=== PATIENT | male | born 1950 | race Caucasian/White ===

== ENCOUNTER 2018-02-03 13:16 | Inpatient (IN) | payer BC ==
--- NOTE | 2018-02-03 13:31 | ED Physician Chart ---
ED Chief Complaint/HPI - Patient Information Date Seen:: 02/03/18 Time Seen:: 13:15 Chief Complaint:: Dizziness History of Present Illness:: onset x one day of dizziness and vertigo; pt denies trauma, LOC, ALOC, AMS, syncope, H/As, S/T, neck pain, C/P, cough, SOB, Abd. Pain, A/N/V/D/C, fever, chills, or urinary s/s Historian:: Patient Review:: Nurse's Note Reviewed ED Review of Systems - Review of Systems General/Constitutional: No fever, No chills, No weight loss, No weakness, No diaphoresis, No edema, No loss of appetite Skin: No skin lesions, No rash, No bruising Head: No headache, No light-headedness Eyes: No loss of vision, No pain, No diplopia ENT: No earache, No nasal drainage, No sore throat, No tinnitus Neck: No neck pain, No swelling, No thyromegaly, No stiffness, No mass noted Cardio Vascular: No chest pain, No palpitations, No PND, No orthopnea, No edema Pulmonary: No SOB, No cough, No sputum, No wheezing GI: No nausea, No vomiting, No diarrhea, No pain, No melena, No hematochezia, No constipation, No hematemesis G/U: No dysuria, No frequency, No hematuria, No nacturia Musculoskeletal: No bone or joint pain, No back pain, No muscle pain Endocrine: No polyuria, No polydipsia Psychiatric: No prior psych history, No depression, No anxiety, No suicidal ideation, No homicidal ideation, No auditory hallucination, No visual hallucination Hematopoietic: No bruising, No lymphadenopathy Allergic/Immuno: No urticaria, No angioedema Neurological: No syncope, No focal symptoms, No weakness, No paresthesia, No headache, No seizure, Dizziness, No confusion, Vertigo ED Past Medical History - Past Medical History Obtainable: Yes Past Medical History: HTN, CAD Family History: HTN Social History: Non Smoker, No Alcohol, No Drug Use, Surgical History: Pacemaker Psychiatricy History: None Medication: Reviewed Family Medical History - Family Member Mother History Unknown: Yes ED Physical Exam - Physical Examination General/Constitutional: Awake, Well-developed, well-nourished, Alert, No distress, GCS 15, Non-toxic appearing, Ambulatory Head: Atraumatic Eyes: Lids, conjuctiva normal, PERRL, EOMI Skin: Nl inspection, No rash, No skin lesions, No ecchymosis, Well hydrated, No lymphadenopathy ENMT: External ears, nose nl, TM canals nl, Nasal exam nl, Lips, teeth, gums nl , Oropharynx nl, Tonsils nl Neck: Nontender, Full ROM w/o pain, No JVD, No nuchal rigidity, No bruit, No mass, No stridor Respiratory: Nl effort/Exclusion, Clear to Auscultation, No Wheeze/Rhonchi/Rales Cardio Vascular: RRR, No murmur, gallop, rubs, NL S1 S2, Carotid/Femoral/Distal pulses equal bilaterally GI: No tenderness/rebounding/guarding, No organomegaly, No hernia, Normal BS's, Nondistended, No mass/bruits, No McBurney tenderness : No CVA tenderness Extremities: No tenderness or effusion, Full ROM, normal strength in all extremities, No edema, Normal digits & nails Neuro/Psych: Alert/oriented, DTR's symmetric, Normal sensory exam, Normal motor strength, Judgement/insight normal, Mood normal, Normal gait, No focal deficits Misc: Normal back, No paraspinal tenderness ED Labs/Radiology/EKG Results - Lab Results Comments:: Reviewed - Radiology Results Comments:: CXR: CM - EKG Interpretations EKG Time:: 13:28 Rate & Rhythm: 61; Pacemaker Rhythm Comments:: non-specific st-t changes ED Septic Shock - . Is Septic Shock (SBP<90, OR Lactate>4 mmol\L) present?: No ED Reassessment (Disposition) - Reassessment Reassessment Condition:: Improved - Diagnosis Diagnosis:: Dizziness; Vertigo; Weakness; Cardiac Arrythmias; Myocardial Ischemia; S/P Defibrillator/Pacemaker - Aftercare/Follow up Instructions Aftercare/Follow-Up Instructions:: Counseled pt regarding lab results/diagnosis & need follow up, Counseled pt & family regarding lab results/diagnosis & need follow up - Patient Disposition Discharge/Transfer:: Acute Care w/in this hosp Accepting Physician:: Dr. Mack Time Called:: 1500 Time Responded:: 15:00 Admitted to:: Telemetry Spoke to:: Dr. Mack Admitting Medical Physician:: Dr. Mack Condition at Disposition:: Stable, Improved
[2018-02-03 13:55] LABS: % BASOPHILS 0.7 % (0.0-2.0); % LYMPHOCYTES 28.4 % (20.0-50.0); % MONOCYTES 8.4 % (2.0-10.0); % NEUTROPHILS 61.5 % (40.0-80.0); EOSINOPHILE ABSOLUTE 0.1 Th/cmm (0.1-0.4); HEMATOCRIT 40.1 % (41.0-60); HEMOGLOBIN 13.2 gm/dL (12-16); MEAN CELL VOLUME 90.2 fl (80-99); MEAN CORPUSCULAR HEMOGLOBIN 29.8 pg (27.0-31.0); MEAN PLATELET VOLUME 7.7 fl; MONOCYTE ABSOLUTE 0.6 Th/cmm (0.3-1.0); NEUTROPHILE ABSOLUTE 4.4 Th/cmm (1.8-8.0); PLATELET COUNT 259 Th/cmm (150-400); RED BLOOD COUNT 4.45 Mil/cmm (3.80-5.80); WHITE BLOOD COUNT 7.1 Th/cmm (4.8-10.8)
--- NOTE | 2018-02-03 14:00 | Diagnostic Imaging Report ---
CHEST X-RAY: AP view INDICATION: pain COMPARISON: None FINDINGS: There is evidence of prior median sternotomy. Left chest wall AICD is noted with leads in the region of the right atrium and right ventricle. Cardiomegaly is noted. There is no focal consolidation or pleural effusions The osseous structures are intact. IMPRESSION: Evidence of prior median sternotomy and AICD placement. Cardiomegaly. No focal consolidation identified.
[2018-02-03 14:08] LABS: INR 0.98 (0.5-1.4); PROTHROMBIN TIME (TEST) 10.2 SECONDS (9.5-11.5)
[2018-02-03 14:20] LABS: ALB/GLOB RATIO 1.2 (1.0-1.8); ALBUMIN 4.1 gm/dL (4.2-5.5); ALKALINE PHOSPHATASE 60 U/L (34-104); ANION GAP 13.3 (7.0-16.0); BUN - UREA NITROGEN 18 mg/dL (7-25); CALCIUM SERUM 9.1 mg/dL (8.6-10.3); CARBON DIOXIDE 24.5 mEq/L (21.0-31.0); CHLORIDE 104 mEq/L (98-107); CHOLESTEROL 219 mg/dL (<200); CREATININE - SERUM 0.9 mg/dL (0.7-1.3); CREATININE KINASE 105 U/L (30-223); GFR AFRICAN-AMERICAN > 60.0 ml/min (>90); GFR NON AFRICAN-AMERICAN > 60.0 ml/min; GLUCOSE 88 mg/dL (70-105); HDL -HIGH DENSITY LIPOPROTEIN 32 mg/dL (23-92); POTASSIUM SERUM 4.8 mEq/L (3.5-5.1); SGOT 23 U/L (13-39); SGPT/ALT 23 U/L (7-52); SODIUM SERUM 137 mEq/L (136-145); TOTAL PROTEIN,SERUM 7.5 gm/dL (6.0-8.3); TRIGLYCERIDES 178 mg/dL (<150)
[2018-02-03] MEDS ORDERED: Maalox 30 mL Cup PO PRN (17:37)
[2018-02-03] MEDS ORDERED: guaiFENesin 200 MG/10 ML UDC PO PRN (17:37)
[2018-02-03] MEDS: Albuterol Nebulizer 2.5mg/3mL HHN SCH (20:43)
[2018-02-03] MEDS: Ipratropium Neb 0.5 mg/2.5 mL UD HHN SCH (20:43)
[2018-02-03] MEDS: D5-0.45NS 1,000 ML IV SCH (21:16)
[2018-02-03 21:41] VITALS: BP 143/68
[2018-02-04 05:52] LABS: % BASOPHILS 0.6 % (0.0-2.0); % EOSINOPHILS 1.3 % (0.0-5.0); % MONOCYTES 9.3 % (2.0-10.0); % NEUTROPHILS 59.8 % (40.0-80.0); EOSINOPHILE ABSOLUTE 0.1 Th/cmm (0.1-0.4); HEMATOCRIT 38.6 % (41.0-60); HEMOGLOBIN 13.1 gm/dL (12-16); LYMPHOCYTE ABSOLUTE 2.1 Th/cmm (1.5-3.0); MEAN CELL VOLUME 89.9 fl (80-99); MEAN CORPUSCULAR HEMOGLOBIN 30.5 pg (27.0-31.0); MEAN CORPUSCULAR HGB CONC 33.9 pg (28.0-36.0); MEAN PLATELET VOLUME 7.9 fl; MONOCYTE ABSOLUTE 0.7 Th/cmm (0.3-1.0); NEUTROPHILE ABSOLUTE 4.5 Th/cmm (1.8-8.0); PLATELET COUNT 221 Th/cmm (150-400); RED BLOOD COUNT 4.29 Mil/cmm (3.80-5.80); RED CELL DISTRIBUTION WIDTH 14.2 % (11.5-20.0); WHITE BLOOD COUNT 7.4 Th/cmm (4.8-10.8)
[2018-02-04 06:13] LABS: ANION GAP 12.1 (7.0-16.0); BUN - UREA NITROGEN 16 mg/dL (7-25); CARBON DIOXIDE 25.3 mEq/L (21.0-31.0); CHLORIDE 103 mEq/L (98-107); CREATININE - SERUM 0.9 mg/dL (0.7-1.3); GFR AFRICAN-AMERICAN > 60.0 ml/min (>90); GFR NON AFRICAN-AMERICAN > 60.0 ml/min; GLUCOSE 121 mg/dL (70-105); MAGNESIUM 2.1 mg/dL (1.9-2.7); POTASSIUM SERUM 4.4 mEq/L (3.5-5.1); SODIUM SERUM 136 mEq/L (136-145)
[2018-02-04] MEDS: Albuterol Nebulizer 2.5mg/3mL HHN SCH ×3 (07:00→15:12)
[2018-02-04] MEDS: Ipratropium Neb 0.5 mg/2.5 mL UD HHN SCH ×3 (07:00→15:13)
[2018-02-04] MEDS ORDERED: ROSUVASTATIN CALCIUM 40 MG PO SCH (09:00)
[2018-02-04] MEDS ORDERED: Aspirin 325 mg EC PO SCH (09:00)
[2018-02-04] MEDS: Pantoprazole 40 mg EC Tab PO SCH ×2 (09:12→17:01)
[2018-02-04] MEDS: D5-0.45NS 1,000 ML IV SCH (09:16)
--- NOTE | 2018-02-04 11:07 | Diagnostic Imaging Report ---
Carotid ultrasound HISTORY: Stenosis COMPARISON: None Technique: Longitudinal and transverse sonographic sector images of the carotid arteries were obtained with doppler analysis. FINDINGS: Exam of the right side demonstrates mild generalized atherosclerotic vascular disease. Exam of the left side demonstrates mild generalized atherosclerotic vascular disease. The velocity and velocity ratios are within normal limits. Antegrade vertebral artery flow is demonstrated bilaterally. IMPRESSION: Mild generalized atherosclerotic disease. No evidence of hemodynamically significant stenosis.
--- NOTE | 2018-02-04 14:48 | History & Physical ---
ADMIT DATE: 02/03/2018 CHIEF COMPLAINT: Dizziness and some chest discomfort. HISTORY OF PRESENT ILLNESS: This is a 67-year-old male with history of CAD status post AICD placement, status post CABG, history of hypertension and hypercholesterolemia, admitted through the ER secondary to dizziness with room spinning. 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 Denies chest pain currently. The patient did have a slightly elevated troponin. PAST MEDICAL HISTORY: As mentioned in history present illness. PAST SURGICAL HISTORY: Status post CABG and AICD placement. ALLERGIES: PIROXICAM. MEDICATIONS: Aciphex, carvedilol, and Crestor. FAMILY HISTORY: Denies diabetes or coronary artery disease. SOCIAL HISTORY: Nonsmoker, drinks on occasion, intermittent drug use. 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 REVIEW OF SYSTEMS: GENERAL: Complains not feeling well. HEENT: No blurred vision or eye pain. LUNGS: No diagnosis of COPD or asthma. HEART: The patient has hypertension and coronary artery disease. ABDOMEN: No nausea or vomiting. NEUROLOGIC: No headache, seizure or syncope. PSYCHIATRIC: As above. PHYSICAL EXAMINATION: VITAL SIGNS: Blood pressure 125/59, respirations 18, pulse 60, temperature 97.0. GENERAL: A well-developed elderly male assessed at bedside. NECK: Supple. No mass. LUNGS: Equal breath sounds, otherwise clear to auscultation. HEART: Regular rate and rhythm without appreciable murmur. ABDOMEN: Soft, nontender. EXTREMITIES: No clubbing, cyanosis or edema. LABORATORY DATA: WBC 7, hemoglobin 13, hematocrit 38, BUN 64, creatinine 0.6, blood sugar 136 and 121. Troponin 0.06. Chemistry, cholesterol 219. Carotid ultrasound showed no significant stenosis. A 2D echo is pending. ASSESSMENT AND PLAN: Dizziness, atypical chest pain, coronary artery disease with ____ as well as acute coronary disease, anemia, obesity, hypercholesterolemia, hyperglycemia, hypertension. We will continue to monitor the patient closely. We will continue on aspirin. Continue on a beta darwin as well as statin. Cardiology has been consulted. We will continue to monitor the patient closely. JOB# [id number]
== END 2018-02-04 18:15 | disposition home or self-care (01) | DRG 303 ==
LOC: ER 13:16 → TELE 18:00
PROVIDERS: ADMIT Internal Medicine; ATTEND Internal Medicine
DX: I25.10 Atherosclerotic heart disease of native coronary artery without angina pectoris (principal); R07.89 Other chest pain; I10 Essential (primary) hypertension; I25.9 Chronic ischemic heart disease, unspecified; R42 Dizziness and giddiness; E78.00 Pure hypercholesterolemia, unspecified; D64.9 Anemia, unspecified; E66.9 Obesity, unspecified; R73.9 Hyperglycemia, unspecified; Z82.49 Family history of ischemic heart disease and other diseases of the circulatory system; Z95.810 Presence of automatic (implantable) cardiac defibrillator; Z88.8 Allergy status to other drugs, medicaments and biological substances; Z95.1 Presence of aortocoronary bypass graft
CPT/HCPCS: 36415-UA; 71045-TC; 80048-TC; 80053-TC; 80061-TC; 82550-TC; 82948-90; 83735-TC; 83880-TC; 84443-TC; 84484-TC; 85025-TC; 85610-TC; 90779; 93005; 93880-TC; 94640; 94760; 96374; J1644; J7613; Z7610